=== PATIENT | male | born 1955 | race Caucasian/White ===

== ENCOUNTER 2024-05-10 01:52 | Outpatient (CLI) | payer MEDICARE, SELFPAY ==
[2024-05-10 09:56] LABS: ALT 24 U/L (16-63); AST 17 U/L (15-37); Albumin 3.7 g/dL (3.4-5.0); Alkaline Phosphatase 141 U/L (46-116); Bilirubin, Direct 0.1 mg/dL (0.0-0.2); Bilirubin, Total 0.37 mg/dL (0.2-1.0)
== END 2024-05-10 01:53 | disposition home or self-care (01) ==
LOC: LBO 01:53
PROVIDERS: PCP Family Medicine; Referring Provider Family Medicine; Visit Provider Family Medicine
DX: B35.1 Tinea unguium (principal)
CPT/HCPCS: 36415; 80076

== ENCOUNTER 2024-07-22 02:10 | Outpatient (CLI) | payer MEDICARE, SELFPAY ==
--- NOTE | 2024-07-22 07:52 | DI.MRI_ITS ---
Exam(s) MR CERVICAL SPINE WO EXAM: MR CERVICAL SPINE WO CLINICAL HISTORY: New onset symptoms,? cervical stenosis,loss of balance,r26.89 TECHNIQUE: Multiplanar multisequence MRI of the cervical spine was performed without intravenous con trast. COMPARISON: No exams were available for comparison FINDINGS: The exam is limited by the patient's body habitus and motion. BONES: Vertebral body heights are maintained. Alignment is normal. Bone marrow signal intensity is wi thin normal limits. CERVICAL CORD: Craniovertebral junction is unremarkable. The cervical cord is normal size and signal intensity. SOFT TISSUES: Unremarkable. C2-3: Endplate osteophytes projecting anteriorly. No disc herniation or bulge is identified. No brooke dence of neural foraminal narrowing. No significant central canal stenosis. C3-4: Endplate osteophytes projecting anteriorly. Tiny central disc protrusion contacts the anterior cord. Mild right neural foraminal narrowing. No significant central canal stenosis. C4-5: Marked broad-based disc bulging. Small endplate osteophytes project posterior. Uncovertebral osteophytes also present. Severe bilateralneural foraminal narrowing. Effacement of the CSF space a nd impingement on the cord, moderate central canal stenosis. C5-6: Broad-based disc osteophytes. Effacement of the CSF space, mild central canal stenosis. Bilat eral neural foraminal narrowing, right greater than left. C6-7: Broad-based disc osteophytes. Effacement of the anterior CSF space. Mild bilateral neural for aminal narrowing. C7-T1: Minimal disc bulging. No evidence of neural foraminal narrowing. No significant central canal stenosis. IMPRESSION: Multilevel degenerative disc changes and facet degenerative changes causing bilateral neural foramina l narrowing. Severe disc bulging at C4-5 causes significant central canal stenosis as well as severe bilateral jose ral foraminal narrowing. The cord signal is normal. DATA REPOSITORY:
--- NOTE | 2024-07-22 07:52 | DI.MRI_ITS ---
Exam(s) MR BRAIN WO EXAM: MR BRAIN WO CLINICAL HISTORY: New onset symptoms,? stroke,loss of balance,r26.89 TECHNIQUE: Multiplanar multisequence MRI of the brain was performed. COMPARISON: No exams were available for comparison FINDINGS: CEREBRAL PARENCHYMA: There is no evidence of intracranial hemorrhage, mass effect, or shift of midline structures. There are no extra-axial fluid collections. Ventricles are not enlarged or shifted. There is no significant focal signal abnormality in the cerebellar hemispheres nor within the misty, m idbrain, and thalami. There are few small sub cm foci of FLAIR bright signal abnormality in the periventricular white matte r bilaterally not associated with hemorrhage, surrounding edema, nor restricted diffusion. PITUITARY GLAND: No mass nor parasellar abnormality. No obvious abnormality in the cavernous sinuses. FLOW VOIDS: The expected flow void are noted. No evidence of obvious aneurysm nor obvious vascular ma lformation. PARANASAL SINUSES: The visualized paranasal sinuses appear unremarkable. No obvious finding ORBITS: No obvious findings. IMPRESSION: There are few foci of signal abnormality in the periventricular white matter bilaterally, consistent with chronic small vessel ischemic changes. No evidence of acute infarct. No hemorrhage. No mass. DATA REPOSITORY:
== END 2024-07-22 02:30 ==
LOC: DI 02:10
PROVIDERS: PCP Family Medicine; Visit Provider Family Medicine
DX: M48.062 Spinal stenosis, lumbar region with neurogenic claudication (principal)
CPT/HCPCS: 70551; 72141

== ENCOUNTER 2024-08-10 16:36 | Outpatient (CLI) | payer MEDICARE, SELFPAY ==
--- NOTE | 2024-08-10 16:30 | RT.EKG_ITS ---
APPROVED REPORT Exam: Resting ECG Reason for Exam: pre-op exam Patient Location: O HR:74 bpm ECG Measurements Heart Rate 74 AXIS MI 186 P 78 QRSd 99 QRS 38 QT 405 T 29 QTc 450 Conclusion Sinus rhythm...normal P axis, V-rate 50- 99 Borderline low voltage, extremity leads...all extremity leads <0.6mV Otherwise normal ECG
== END 2024-08-10 16:37 | disposition home or self-care (01) ==
PROVIDERS: PCP Family Medicine; Visit Provider Nurse Practitioner
DX: Z01.818 Encounter for other preprocedural examination (principal)
CPT/HCPCS: 93010

== ENCOUNTER 2024-08-11 01:19 | Outpatient (CLI) | payer MEDICARE, SELFPAY ==
--- NOTE | 2024-08-11 | DI.CT_ITS ---
Exam(s) CT CERVICAL SPINE WO EXAM: CT CERVICAL SPINE WO CLINICAL HISTORY: CERVICAL MYELOPATHY, G95.9, ASSESS BONY ANATOMY FOR PRE OP PLANNING. TECHNIQUE: Imaging Protocol: Axial computed tomography images with coronal and sagittal reformatted images were created and reviewed COMPARISON: MR MR CERVICAL SPINE WO from 07/22/2024 FINDINGS: CERVICAL SPINE: Recent MRI scan 07/22/2024 revealed significant findings. There is no evidence of acute fracture nor listhesis.. No disc space narrowing evident. There are p rominent multilevel calcifications in the anterior longitudinal region at C2-3-4-5 levels. There is no significant calcification the posterior longitudinal ligament. There is no true fusion across levels anteriorly nor posteriorly and there are minimal if any signifi cant degenerative changes in the facet joints. There are very small Luschka joint osteophytes at C4-5 and C5-6 levels. No significant osseous lesions evident. IMPRESSION: Preserved disc height at each level is probably related to the prominent anterior bony scaffolding in the prevertebral regions from C2-C5. There is no DISH-type calcification in the posterior longtitud inal ligament region. No significant facet arthropathy. No facet joint fusion. RADIATION DOSE DELIVERED: 565.94mGy.cm Total DLP DATA REPOSITORY: All CT scans at this facility are submitted to the National Radiology Data Registry (NRDR) Dose Index Registry (DIR) with the [employer] ([employer]). RADIATION OPTIMIZATION: All CT scans at this facility use at least one of these dose optimization te chniques: automated exposure control; mA and/or kV adjustment per patient size (includes targeted exa ms where dose is matched to clinical indication); or iterative reconstruction.
== END 2024-08-11 01:39 ==
LOC: DI 01:21
PROVIDERS: PCP Family Medicine; Visit Provider Orthopaedic Surgery
DX: G95.9 Disease of spinal cord, unspecified (principal)
CPT/HCPCS: 72125

== ENCOUNTER 2024-08-11 09:00 | Outpatient (CLI) | payer MEDICARE, SELFPAY ==
[2024-08-11 08:57] LABS: HCT 40.3 % (40.0-50.0); HGB 13.5 g/dL (13.5-17.5); MCH 29.6 pg (27.0-33.0); MCHC 33.5 % (32.0-36.0); MCV 88 fL (80-95); MPV 9.8 fL (8.0-11.0); Platelet Count 142 10^3/uL (130-400); RBC 4.56 10^6/uL (4.36-5.78); RDW 13.1 % (11.8-14.1); RDW-SD 42.2 fL; WBC 4.64 10^3/uL (4.4-10.8)
[2024-08-11 09:00] LABS: INR 0.9 (0.9-1.1); Prothrombin Time 9.4 sec (9.1-11.1)
[2024-08-11 09:07] LABS: Anion Gap 10.4 mmol/L (3-11); BUN 31 mg/dL (7-18); CO2 26.6 mmol/L (21.0-32.0); CREATININE 1.3 mg/dL (0.70-1.30); Calcium 8.1 mg/dL (8.5-10.1); Chloride 106 mmol/L (98-107); Estimated GFR 59.84 (mL/min/1.73m2); Glucose 190 mg/dL (74-106); Potassium 3.9 mmol/L (3.5-5.1); Sodium 143 mmol/L (136-145)
== END 2024-08-11 09:01 | disposition home or self-care (01) ==
LOC: LBO 09:01
PROVIDERS: Nurse Practitioner; PCP Family Medicine; Referring Provider Family Medicine; Visit Provider Family Medicine
DX: Z01.818 Encounter for other preprocedural examination (principal); T14.8XXA Other injury of unspecified body region, initial encounter
CPT/HCPCS: 36415; 80048; 85027; 86850; 86900; 86901; 85610

== ENCOUNTER 2024-11-25 13:47 | Outpatient (CLI) | payer MEDICARE, SELFPAY ==
--- NOTE | 2024-11-25 08:30 | DI.RAD_ITS ---
Exam(s) XR KNEE LT 4V AP,LAT,VANITA,PAT EXAM: XR KNEE LT 4V AP,LAT,VANITA,PAT CLINICAL HISTORY: Knee pain. TECHNIQUE: 2D digital imaging was performed. COMPARISON: No exams were available for comparison FINDINGS: Four views No evidence of fracture. There is a small amount of increased joint fluid. There is advanced narrowing of the lateral aspect of the patellofemoral compartment and there is some moderate lateral deviation of the patella within the intercondylar notch. There are moderate degenerative changes in the medial compartment of the knee and milder degenerative changes in the lateral compartment. Bone density normal. No osseous lesions. Mild chondrocalcinos is is noted in the medial and lateral compartments. IMPRESSION: Tricompartmental degenerative changes as described above. The most prominent narrowing is in the pat ellofemoral compartment. DATA REPOSITORY: RADIATION DOSE DELIVERED:
--- NOTE | 2024-11-25 08:30 | DI.RAD_ITS ---
Exam(s) XR KNEE RT 4V AP,LAT,VANITA,PAT EXAM: XR KNEE RT 4V AP,LAT,VANITA,PAT CLINICAL HISTORY: KNEE PAIN. TECHNIQUE: 2D digital imaging was performed. COMPARISON: CR XR KNEE LT 4V AP,LAT,VANITA,PAT from 11/25/2024 FINDINGS: Four views No evidence fracture but there does appear to be a moderate size joint effusion. There also peripher ally calcified loose bodies in the anterior aspect of the knee joint. There is evidence of previous surgery at the level of the patella and femoral condyle. Possible prio r medial capsular repair. There is chondrocalcinosis in the medial lateral compartments. Small marginal osteophytes of both la teral and medial compartments are noted and only mild narrowing of these compartments is evident. In the patellofemoral compartment there is more advanced narrowing and there is lateral tilting of th e patella evident. IMPRESSION: Previous surgery. Degenerative changes. There is lateral tilting of the patella DATA REPOSITORY: RADIATION DOSE DELIVERED:
== END 2024-11-25 13:48 | disposition home or self-care (01) ==
LOC: DIORS 13:48
PROVIDERS: PCP Family Medicine; Referring Provider Family Medicine; Visit Provider Physician Assistant
DX: M17.11 Unilateral primary osteoarthritis, right knee; M17.12 Unilateral primary osteoarthritis, left knee
CPT/HCPCS: 20610; 99203; J1010; 73564

== ENCOUNTER 2024-12-09 01:02 | Outpatient (CLI) | payer MEDICARE, SELFPAY ==
--- NOTE | 2024-12-09 | DI.CT_ITS ---
Exam(s) CT CERVICAL SPINE WO EXAM: CT CERVICAL SPINE WO CLINICAL HISTORY: S/P cervical arthrodesis, Z98.1; cervical myelopathy, G95.9; h/o C4-7. TECHNIQUE: Imaging Protocol: Axial computed tomography images with coronal and sagittal reformatted images were created and reviewed CONTRAST MATERIAL: Noncontrast COMPARISON: DX XR CERVICAL SPINE 2 OR 3 VIEWS from 11/17/2024 FINDINGS: Bones: No fractures are seen. There is posterior fusion hardware extending from C4 through T1. Fernandez inectomies are present at these levels. The pedicle screws at the C4 level show surrounding lucenci es. There is also some lucency surrounding the pedicle screw at C5 on the right. There are prominen t osteophytes anteriorly consistent with DISH. Soft Tissues: Postsurgical changes are noted in the posterior soft tissues. There is no evidence of an abscess or drainable fluid collection.. The visualized portions of the lung apices are clear. No pneumothorax is seen. IMPRESSION: Posterior fusion hardware from C4 through T1. There abnormal lucencies around the pedicle screws at C3-4 as well as on the right at C5, consistent with loosening. RADIATION DOSE DELIVERED: 563.75mGy.cm Total DLP DATA REPOSITORY: All CT scans at this facility are submitted to the National Radiology Data Registry (NRDR) Dose Index Registry (DIR) with the [employer] ([employer]). RADIATION OPTIMIZATION: All CT scans at this facility use at least one of these dose optimization te chniques: automated exposure control; mA and/or kV adjustment per patient size (includes targeted exa ms where dose is matched to clinical indication); or iterative reconstruction.
== END 2024-12-09 01:22 ==
LOC: DI 01:02
PROVIDERS: PCP Family Medicine; Visit Provider Student in an Organized Health Care Education/Training Program
DX: G95.9 Disease of spinal cord, unspecified (principal); Z98.1 Arthrodesis status; T84.296A Other mechanical complication of internal fixation device of vertebrae, initial encounter
CPT/HCPCS: 72125

== ENCOUNTER 2025-01-11 01:27 | Outpatient (CLI) | payer MEDICARE, SELFPAY ==
--- NOTE | 2025-01-11 11:30 | DI.MRI_ITS ---
Exam(s) MR CERVICAL SPINE WO EXAM: MR CERVICAL SPINE WO CLINICAL HISTORY: LOOSENING OF HARDWARE IN SPINE, T84.498A PRIOR CERVICAL LAMINECTORMY TECHNIQUE: Multiplanar multisequence MRI of the cervical spine was performed without intravenous con trast. COMPARISON: MR MR CERVICAL SPINE WO from 07/22/2024 DX XR CERVICAL SPINE 2 OR 3 VIEWS from 09/20/2024 DX XR CERVICAL SPINE 2 OR 3 VIEWS from 11/17/[address] CERVICAL SPINE WO from 12/09/2024 DX XR CERVICAL SPINE 2 OR 3 VIEWS from 12/20/2024 FINDINGS: BONES: Vertebral body heights are maintained. There are endplate osteophytes at multiple levels of th e cervical spine. There is mild straightening of the normal cervical lordosis. Bone marrow signal i ntensity is within normal limits. Since the prior MRI examination from 07/22/2024 the patient has und ergone posterior spinal surgery extending from C4 through T1. CERVICAL CORD: Craniovertebral junction is unremarkable. The cervical cord is normal size and signal intensity. SOFT TISSUES: Postsurgical changes are seen in the soft tissues posteriorly. No focal fluid collecti on is seen to suggest an abscess. C2-3: No disc herniation or bulge is identified. No significant central spinal canal or neural forami nal stenosis. C3-4: No disc herniation or bulge is identified. No significant central spinal canal or neural forami nal stenosis C4-5: There is a central disc herniation. The findings do result in mild narrowing of the central sp inal canal. Uncovertebral joint hypertrophy is present. This results in bilateral neural foraminal stenosis, right greater than left. C5-6: There is mild prominence of the osteophyte disc complex. There is mild bilateral uncovertebral joint hypertrophy resulting in mild narrowing of the neural foramen bilaterally. No significant navi tral spinal canal stenosis is present. C6-7: No disc herniation or bulge is identified. No significant central spinal canal or neural forami nal stenosis C7-T1: No disc herniation or bulge is identified. No significant central spinal canal or neural irene inal stenosis IMPRESSION: 1. Since the prior MRI examination there has been posterior spinal fusion from C4 through T1. No foc al fluid collection is seen in the soft tissues to suggest an abscess. 2. Disc herniation centrally at C4-C5 which does result in mild central spinal canal stenosis. 3. Multilevel degenerative changes in the cervical spine resulting in neural foraminal stenosis at C4 -5 and C5-C6. DATA REPOSITORY:
== END 2025-01-11 01:47 ==
LOC: DI 01:28
PROVIDERS: PCP Family Medicine; Visit Provider Orthopaedic Surgery
DX: T84.498A Other mechanical complication of other internal orthopedic devices, implants and grafts, initial encounter (principal); M48.02 Spinal stenosis, cervical region; M43.22 Fusion of spine, cervical region
CPT/HCPCS: 72141

== ENCOUNTER 2025-01-11 11:58 | Outpatient (CLI) | payer MEDICARE, SELFPAY ==
[2025-01-11 13:17] LABS: Abs Immature Grans 0.01 10^3/uL (0.0-0.06); Absolute Basophil Count 0.03 10^3/uL (0.0-0.2); Absolute Eosinophil Count 0.18 10^3/uL (0.0-0.7); Absolute Lymphocyte Count 1.54 10^3/uL (1.2-3.4); Absolute Monocyte Count 0.66 10^3/uL (0.1-0.8); Absolute Neutrophil Count 4.89 10^3/uL (1.2-6.7); Basophils % 0.4 %; Eosinophils % 2.5 %; HCT 43.4 % (40.0-50.0); HGB 14.3 g/dL (13.5-17.5); Immature Grans % 0.1 %; Lymphocytes % 21.1 %; MCH 28.9 pg (27.0-33.0); MCHC 32.9 % (32.0-36.0); MCV 88 fL (80-95); MPV 9.1 fL (8.0-11.0); Neutrophils % 66.9 %; Platelet Count 210 10^3/uL (130-400); RBC 4.95 10^6/uL (4.36-5.78); RDW 14.1 % (11.8-14.1); WBC 7.31 10^3/uL (4.4-10.8)
[2025-01-11 13:57] LABS: Prothrombin Time 9.8 sec (9.1-11.1)
[2025-01-11 14:06] LABS: Anion Gap 5.9 mmol/L (3-11); BUN 20 mg/dL (7-18); CO2 30.1 mmol/L (21.0-32.0); CREATININE 1.3 mg/dL (0.70-1.30); Calcium 9.6 mg/dL (8.5-10.1); Chloride 104 mmol/L (98-107); Estimated GFR 59.84 (mL/min/1.73m2); Glucose 125 mg/dL (74-106); Potassium 4.1 mmol/L (3.5-5.1); Sodium 140 mmol/L (136-145)
[2025-01-13 21:08] LABS: Fructosamine 281 mcmol/L (200 - 285)
== END 2025-01-11 11:59 | disposition home or self-care (01) ==
PROVIDERS: PCP Family Medicine; Visit Provider Orthopaedic Surgery Orthopaedic Surgery of the Spine
DX: E11.9 Type 2 diabetes mellitus without complications (principal); Z79.4 Long term (current) use of insulin; I48.0 Paroxysmal atrial fibrillation; Z01.818 Encounter for other preprocedural examination; Z98.1 Arthrodesis status; G95.9 Disease of spinal cord, unspecified
CPT/HCPCS: 36415; 80048; 82985; 85025; 85610

== ENCOUNTER 2025-01-14 09:30 | Outpatient (CLI) | payer MEDICARE, SELFPAY ==
--- NOTE | 2025-01-14 09:30 | RT.EKG_ITS ---
APPROVED REPORT Exam: Resting ECG Reason for Exam: Pre-op exam Patient Location: O HR:73 bpm ECG Measurements Heart Rate 73 AXIS MO 197 P 65 QRSd 99 QRS 25 QT 402 T 29 QTc 443 Conclusion Sinus rhythm...normal P axis, V-rate 50- 99 Borderline low voltage, extremity leads...all extremity leads <0.6mV Otherwise normal ECG
== END 2025-01-14 09:31 | disposition home or self-care (01) ==
LOC: DI.KIM 09:30
PROVIDERS: PCP Family Medicine; Visit Provider Family Medicine
DX: Z01.818 Encounter for other preprocedural examination (principal)
CPT/HCPCS: 93010